=== PATIENT | male | born 1990 | race Caucasian/White ===

== ENCOUNTER 2018-12-07 18:09 | Emergency (ER) | payer BC ==
[~2018-12-07] VITALS: Ht 172.7 cm; Wt 77.1 kg
[~2018-12-07 18:09] MED LIST: BACTRIM 400-801 EACH PO; BACTRIM DS TAB1 EACH PO; CLEOCIN HCL300 MG PO; NOHOMEMEDICATIONS; NORCO 5-325 TA1 EACH PO
[2018-12-07] MEDS ORDERED: NORCO 5-325 TA1 EACH PO (20:02)
[2018-12-07] MEDS ORDERED: IBUPROFEN 600600 M1 PO (20:02)
[2018-12-07] MEDS ORDERED: KEFLEX500 M1 PO (20:02)
[2018-12-07 20:21] VITALS: BP 118/70
== END 2018-12-07 20:21 | disposition home or self-care (01) ==
LOC: M.ERS 18:09
DX: S61.217A Laceration without foreign body of left little finger without damage to nail, initial encounter (principal); F17.210 Nicotine dependence, cigarettes, uncomplicated; W26.0XXA Contact with knife, initial encounter; Y93.89 Activity, other specified; Y92.89 Other specified places as the place of occurrence of the external cause; Y99.8 Other external cause status

== ENCOUNTER 2019-11-25 15:30 | Emergency (ER) | payer BC ==
[~2019-11-25] VITALS: Ht 170.2 cm; Wt 77.1 kg
[~2019-11-25 15:30] MED LIST changes: +IBUPROFEN 600600 M1 PO; +KEFLEX500 M1 PO
[2019-11-25] MEDS ORDERED: PREDNISONE 20 M20 M1 PO (16:00)
[2019-11-25] MEDS ORDERED: AMOXICILLIN 50500 MG PO (16:00)
[2019-11-25 16:19] LABS: INFLUENZA A ANTIGEN Negative (Negative); INFLUENZA B ANTIGEN Negative (Negative)
[2019-11-25 16:23] LABS: ABSOLUTE BASOPHILS 0.1 thou/uL (0.0-0.2); ABSOLUTE EOSINOPHILS 0.2 thou/uL (0.0-0.7); ABSOLUTE LYMPHOCYTES 4.1 thou/uL (0.8-5.3); ABSOLUTE MONOCYTES 0.9 thou/uL (0.0-1.2); BASOPHILS 0.9 %; EOSINOPHILS 2.3 %; HEMATOCRIT 44.3 % (42.0-52.0); HEMOGLOBIN 15.5 gm/dL (14.0-18.0); LYMPHOCYTES 44.2 %; MCH 31.2 pg (26.0-34.0); MONOCYTES 9.9 %; NUCLEATED RBCS 0 /100WBC; PLATELET COUNT* 237 thou/uL (150-400); POLYS 42.7 %; RBC 4.97 mil/uL (4.50-6.00); RDW-CV 13.5 % (10.5-14.5); WBC 9.3 thou/uL (4.0-11.0)
[2019-11-25 16:43] VITALS: BP 139/76
[2019-11-25 16:44] LABS: ALBUMIN 3.8 g/dL (3.4-5.0); CALCIUM 8.2 mg/dL (8.5-10.1); POTASSIUM 3.7 mmol/L (3.5-5.1); TOTAL BILIRUBIN 0.2 mg/dL (<0.1-1.0); TOTAL PROTEIN 7.4 g/dL (6.4-8.2)
== END 2019-11-25 16:44 | disposition home or self-care (01) ==
LOC: M.ERS 15:30
PROVIDERS: Family Medicine
DX: J02.9 Acute pharyngitis, unspecified (principal)